=== PATIENT | male | born 1950 | race Caucasian/White ===

== ENCOUNTER → 2016-12-03 | Outpatient (CLI) | payer MEDICARE ==
[~2016-12-03] VITALS: Ht 177.8 cm; Wt 97.5 kg
[~2016-12-03] MED LIST: ANDR1.62 TD; CABE0.5T PO; CORT10TA PO; CORT5TAB2 PO; ECOT81TA5 PO; HYDROCORTISONE 100 MG/2 ML VIAL (J1720) IV ONE; LEVO125T3 PO; LIDOCAINE 2% INJ 100 MG/5 ML SDV (FOR ANES.) As Ordered ONE; NS 1,000 ML IV SCH; PROPOFOL 200 MG/20 ML VIAL As Ordered ONE; PROT1TAB2 PO; REPA1.7I SC; VITA500046 PO
--- NOTE | 2016-12-03 12:28 | ROOR ---
Patient Name: Rashad Mena Procedure Date: 12/03/2016 12:15 PM Date of : 1950 Age: 66 Room: [facility] Gender: Male Note Status: Finalized Procedure: Upper GI endoscopy + Biopsies Indications: Heartburn Providers: Matthew Rahman MD Referring MD: RONNIE HEBERT JR, MD Requesting Provider: Medicines: Monitored Anesthesia Care Complications: No immediate complications. Procedure: Pre-Anesthesia Assessment: - The heart rate, respiratory rate, oxygen saturations, blood pressure, adequacy of pulmonary ventilation, and response to care were monitored throughout the procedure. The Endoscope was introduced through the mouth, and advanced to the second part of duodenum. The upper GI endoscopy was accomplished without difficulty. The patient tolerated the procedure well. Findings: The Z-line was regular and was found 40 cm from the incisors. A small hiatal hernia was present. Localized minimal inflammation characterized by congestion (edema) and erythema was found in the gastric antrum. Biopsies were taken with a cold forceps for Helicobacter pylori testing. The exam was otherwise without abnormality. Impression: - Z-line regular, 40 cm from the incisors. - Small hiatal hernia. - Chronic gastritis. Biopsied. - The examination was otherwise normal. Recommendation: - Patient has a contact number available for emergencies. The signs and symptoms of potential delayed complications were discussed with the patient. Return to normal activities tomorrow. Written discharge instructions were provided to the patient. - High fiber diet. - Discharge patient to home. - Continue present medications. - Await pathology results. - Follow an antireflux regimen. - Check Portal Online for Path Results.([email or web address]) - Return to referring physician. - The findings and recommendations were discussed with the patient's family. Matthew Rahman MD Matthew Rahman MD 12/03/2016 12:27:58 PM This report has been signed electronically. Number of Addenda: 0 Note Initiated On: 12/03/2016 12:15 PM Estimated Blood Loss: Estimated blood loss: none.
--- NOTE | 2016-12-03 12:37 | ROOR ---
Patient Name: Rashad Mena Procedure Date: 12/03/2016 12:15 PM Date of : 1950 Age: 66 Room: [facility] Gender: Male Note Status: Finalized Procedure: Colonoscopy to Cecum Indications: Screening for colorectal malignant neoplasm, Last colonoscopy: 2006 Providers: Matthew Rahman MD Referring MD: RONNIE HEBERT JR, MD Requesting Provider: Medicines: Monitored Anesthesia Care Complications: No immediate complications. Procedure: Pre-Anesthesia Assessment: - The heart rate, respiratory rate, oxygen saturations, blood pressure, adequacy of pulmonary ventilation, and response to care were monitored throughout the procedure. The Colonoscope was introduced through the anus and advanced to the cecum, identified by appendiceal orifice and ileocecal valve. The colonoscopy was performed without difficulty. The patient tolerated the procedure well. The quality of the bowel preparation was excellent. Findings: The perianal and digital rectal examinations were normal. Scattered small-mouthed diverticula were found in the recto-sigmoid colon, sigmoid colon and descending colon. The exam was otherwise without abnormality on direct and retroflexion views. Impression: - Diverticulosis in the recto-sigmoid colon, in the sigmoid colon and in the descending colon. - The examination was otherwise normal on direct and retroflexion views. - No specimens collected. - The exam was otherwise normal to the cecum. Recommendation: - Patient has a contact number available for emergencies. The signs and symptoms of potential delayed complications were discussed with the patient. Return to normal activities tomorrow. Written discharge instructions were provided to the patient. - High fiber diet. - Discharge patient to home. - Continue present medications. - Repeat colonoscopy in 10 years for screening purposes. - Return to referring physician. - The findings and recommendations were discussed with the patient's family. Matthew Rahman MD Matthew Rahman MD 12/03/2016 12:37:25 PM This report has been signed electronically. Number of Addenda: 0 Note Initiated On: 12/03/2016 12:15 PM Estimated Blood Loss: Estimated blood loss: none.
[2016-12-03 13:25] VITALS: BP 156/96
== END | disposition home or self-care (01) ==
LOC: M OPP 10:54
PROVIDERS: ATTEND Internal Medicine Gastroenterology
DX: Z12.11 Encounter for screening for malignant neoplasm of colon (principal); K57.30 Diverticulosis of large intestine without perforation or abscess without bleeding; R12 Heartburn; K44.9 Diaphragmatic hernia without obstruction or gangrene; K29.50 Unspecified chronic gastritis without bleeding; E27.40 Unspecified adrenocortical insufficiency; E16.2 Hypoglycemia, unspecified; E03.9 Hypothyroidism, unspecified; M19.90 Unspecified osteoarthritis, unspecified site; E23.0 Hypopituitarism; Z79.899 Other long term (current) drug therapy; Z79.52 Long term (current) use of systemic steroids; Z88.1 Allergy status to other antibiotic agents
CPT/HCPCS: 43239; 88305; 99156; 99157; G0121; J1720

== ENCOUNTER 2020-08-08 08:40 | Day surgery (SDC) | payer MEDICARE, OTHER ==
[~2020-08-08] VITALS: Ht 182.9 cm; Wt 95.3 kg
[~2020-08-08 08:40] MED LIST changes: +ANDR4DIS TD; +FLUD0.1T; -HYDROCORTISONE 100 MG/2 ML VIAL (J1720) IV ONE; -LEVO125T3 PO; +LEVO125T4 PO; -LIDOCAINE 2% INJ 100 MG/5 ML SDV (FOR ANES.) As Ordered ONE; +LIOT5TAB6; +NS 1,000 ML IV ONE; -NS 1,000 ML IV SCH; +OCUVCAP2 PO; -PROPOFOL 200 MG/20 ML VIAL As Ordered ONE; -REPA1.7I SC; +REPA140I SC
[2020-08-08] MEDS ORDERED: LIDOCAINE 2% 100MG/5ML SDV (FOR ANES.) As Ordered ONE (09:11)
[2020-08-08] MEDS ORDERED: propofoL 200 MG/20 ML VIAL As Ordered ONE (09:11)
[2020-08-08] MEDS ORDERED: fentaNYL 100 MCG/2 ML INJECTION (J3010) As Ordered ONE (10:06)
[2020-08-08] MEDS ORDERED: HYDROCORTISONE 100 MG/2 ML VIAL (J1720 PER 1) As Ordered ONE (10:25)
--- NOTE | 2020-08-08 10:41 | ROOR ---
Patient Name: Rashad Mena Procedure Date: 08/08/2020 10:25 AM Date of : 1950 Age: 70 Room: [facility] Gender: Male Note Status: Finalized Procedure: Upper Endoscopy + Biopsies Indications: Heartburn, Exclusion of Walker's esophagus Providers: Matthew Rahman MD Referring MD: RONNIE HEBERT JR, MD Requesting Provider: Medicines: Monitored Anesthesia Care Complications: No immediate complications. Procedure: Pre-Anesthesia Assessment: - The heart rate, respiratory rate, oxygen saturations, blood pressure, adequacy of pulmonary ventilation, and response to care were monitored throughout the procedure. The Endoscope was introduced through the mouth, and advanced to the second part of duodenum. The upper GI endoscopy was accomplished without difficulty. The patient tolerated the procedure well. Findings: The Z-line was regular and was found 40 cm from the incisors. Multiple biopsies were obtained with cold forceps for evaluation to rule out Walker's Esophagus randomly at the gastroesophageal junction. A small hiatal hernia was present. No other significant abnormalities were identified in a careful examination of the stomach. The exam of the duodenum was otherwise normal. Impression: - Z-line regular, 40 cm from the incisors. - Small hiatal hernia. - Multiple biopsies were obtained at the gastroesophageal junction. - The examination was otherwise normal. Recommendation: - Patient has a contact number available for emergencies. The signs and symptoms of potential delayed complications were discussed with the patient. Return to normal activities tomorrow. Written discharge instructions were provided to the patient. - Discharge patient to home. - Follow an antireflux regimen. - Continue present medications. - Await pathology results. - Telephone GI clinic for pathology results in 1 week. - Return to referring physician. - The findings and recommendations were discussed with the patient. Procedure Code(s): --- Professional --- 41826, Esophagogastroduodenoscopy, flexible, transoral; with biopsy, single or multiple Diagnosis Code(s): --- Professional --- K44.9, Diaphragmatic hernia without obstruction or gangrene R12, Heartburn CPT copyright 2019 [employer]. All rights reserved. The codes documented in this report are preliminary and upon certified medical records coder review may be revised to meet current compliance requirements. Matthew Rahman MD Matthew Rahman MD 08/08/2020 10:41:06 AM Electronically signed by Matthew Rahman MD Number of Addenda: 0 Note Initiated On: 08/08/2020 10:25 AM Estimated Blood Loss: Estimated blood loss: none.
--- NOTE | 2020-08-08 10:55 | ROOR ---
Patient Name: Rashad Mena Procedure Date: 08/08/2020 10:26 AM Date of : 1950 Age: 70 Room: [facility] Gender: Male Note Status: Finalized Procedure: Total Colonoscopy to Cecum Indications: Colon cancer screening in patient at increased risk: Colorectal cancer in sister Providers: Matthew Rahman MD Referring MD: RONNIE HEBERT JR, MD Requesting Provider: Medicines: Monitored Anesthesia Care Complications: No immediate complications. Procedure: Pre-Anesthesia Assessment: - The heart rate, respiratory rate, oxygen saturations, blood pressure, adequacy of pulmonary ventilation, and response to care were monitored throughout the procedure. The Colonoscope was introduced through the anus and advanced to the cecum, identified by appendiceal orifice and ileocecal valve. The colonoscopy was performed without difficulty. The patient tolerated the procedure well. The quality of the bowel preparation was excellent. Findings: The perianal and digital rectal examinations were normal. Non-bleeding internal hemorrhoids were found during retroflexion. The hemorrhoids were small and Grade I (internal hemorrhoids that do not prolapse). No other significant abnormalities were identified in a careful examination of the remainder of the colon. The exam was otherwise without abnormality on direct and retroflexion views. Impression: - Non-bleeding internal hemorrhoids. - The examination was otherwise normal on direct and retroflexion views. - No specimens collected. - The exam was otherwise normal to the cecum. Recommendation: - Patient has a contact number available for emergencies. The signs and symptoms of potential delayed complications were discussed with the patient. Return to normal activities tomorrow. Written discharge instructions were provided to the patient. - High fiber diet. - Discharge patient to home. - Continue present medications. - Repeat colonoscopy in 3 years for screening purposes. - Return to referring physician. - The findings and recommendations were discussed with the patient. Procedure Code(s): --- Professional --- G0105, Colorectal cancer screening; colonoscopy on individual at high risk Diagnosis Code(s): --- Professional --- Z80.0, Family history of malignant neoplasm of digestive organs K64.0, First degree hemorrhoids CPT copyright 2019 [employer]. All rights reserved. The codes documented in this report are preliminary and upon automobile lights assembler review may be revised to meet current compliance requirements. Matthew Rahman MD Matthew Rahman MD 08/08/2020 10:55:20 AM Electronically signed by Matthew Rahman MD Number of Addenda: 0 Note Initiated On: 08/08/2020 10:26 AM Estimated Blood Loss: Estimated blood loss: none.
[2020-08-08 11:25] VITALS: BP 131/92
== END 2020-08-08 11:37 | disposition home or self-care (01) ==
LOC: M OPP 08:40
PROVIDERS: ATTEND Internal Medicine Gastroenterology
DX: Z12.11 Encounter for screening for malignant neoplasm of colon (principal); Z80.0 Family history of malignant neoplasm of digestive organs; K64.0 First degree hemorrhoids; R12 Heartburn; K44.9 Diaphragmatic hernia without obstruction or gangrene
CPT/HCPCS: 43239; 88305; G0105; J1720; J3010

== ENCOUNTER → 2021-04-15 | Outpatient (CLI) | payer MEDICARE, OTHER ==
[~2021-04-15] MED LIST changes: -NS 1,000 ML IV ONE; +PROHANCE 279.3MG/ML 15ML VIAL As Ordered ONE
--- NOTE | 2021-04-16 09:27 | REPVR ---
PROCEDURE INFORMATION: Exam: MR Head Without and With Contrast, Sella Exam date and time: 04/15/2021 5:14 PM Age: 70 years old Clinical indication: Condition or disease; Other: Pituitary adenoma; Prior surgery; Surgery date: 6+ months; Surgery type: Resection TECHNIQUE: Imaging protocol: MR of the head without and with intravenous contrast. Exam focused on the sella. Contrast material: PROHANCE; Contrast volume: 10 ml; Contrast route: INTRAVENOUS (IV); COMPARISON: No relevant prior studies available. FINDINGS: Brain: There is no extra-axial collection or intra-axial mass. Mild diffuse volume loss is within the range of normal for patient age. There are minimal foci of T2/FLAIR white matter hyperintensity, nonspecific but typically small-vessel ischemia in this age group. There is no diffusion restriction. There is no abnormal enhancement within the brain. Cerebral ventricles: Unremarkable. No Ventriculomegaly. Pituitary gland and sella: There are postoperative changes reflecting subtotal pituitary resection. There is residual heterogeneous pituitary tissue within the left sella, potentially residual adenoma. The pituitary stock is deviated to the right. Bones/joints: Unremarkable. IMPRESSION: Changes reflecting subtotal pituitary resection. Residual pituitary soft tissue on the left appears heterogeneous, suggestive of residual adenoma. Comparison with any preceding examinations would be of benefit. Electronically signed by: Kandice Joseph On 04/16/2021 09:27:44 AM
== END ==
LOC: M RAD 15:35
PROVIDERS: ATTEND Nurse Practitioner Family
DX: D35.2 Benign neoplasm of pituitary gland (principal)
CPT/HCPCS: 70553; A9576

== ENCOUNTER → 2021-05-13 | Outpatient (REF) | payer MEDICARE, OTHER ==
[~2021-05-13] MED LIST changes: -PROHANCE 279.3MG/ML 15ML VIAL As Ordered ONE
== END ==
LOC: M LAB REF 16:19
PROVIDERS: ATTEND Internal Medicine
DX: U07.1 COVID-19 (principal)

== ENCOUNTER → 2022-02-27 | Outpatient (REF) | payer MEDICARE, OTHER | LOC: M LAB REF 16:08 | PROVIDERS: ATTEND Internal Medicine | DX: Z12.5 Encounter for screening for malignant neoplasm of prostate (principal) ==